=== PATIENT | male | born 1955 | race Caucasian/White ===

== ENCOUNTER 2016-12-29 10:17 | Inpatient (IN) | payer MEDICARE, OTHER ==
[~2016-12-29] VITALS: Ht 182.9 cm; Wt 159.0 kg
[2016-12-29 08:41] LABS: BASO % 0.4 % (0.2-1.2); EOS # 0.4 10_X3_uL (0.0-0.5); EOS % 4.4 % (0.8-7.0); GRAN # 6.2 10_X3_uL (1.8-5.4); GRAN % 65.4 % (34.0-67.9); HEMATOCRIT 32.2 % (40-51); HEMOGLOBIN 9.9 g/dL (13.7-17.5); LYMPH # 1.9 10_X3_uL (1.3-3.6); LYMPH % 20.3 % (21.8-53.1); MEAN CORPUSCULAR HEMOGLOBIN 28.3 pg (27.0-33.0); MEAN CORPUSCULAR HGB CONC 30.7 g/dL (32.0-36.0); MONO # 0.9 10_X3_uL (0.3-0.8); MONO % 9.5 % (5.3-12.2); PLATELET COUNT 253 x10_3/uL (163-337); RED CELL DISTRIBUTION WIDTH 14.7 % (11.6-14.4); WHITE BLOOD COUNT 9.5 x10_3/uL (4.2-9.1)
[2016-12-29 08:55] LABS: MICROALBUMIN 37.3 mg/L (1.3-20.0)
[2016-12-29 08:58] LABS: AHDL CHOLESTEROL 35 mg/dL (>40); ALBUMIN 3.8 gm/dL (3.4-5.0); ALKALINE PHOSPHATASE 113 U/L (50-136); ALT/SGPT 24 U/L (7.53-40.17); AST/SGOT 18 U/L (6.66-35.34); BLOOD UREA NITROGEN 23 mg/dL (7-18); CALCIUM 9.5 mg/dL (8.7-10.7); CARBON DIOXIDE 30 mmol/L (21-32); CHOLESTEROL 107 mg/dL (0-200); CREATININE 0.9 mg/dL (0.6-1.3); GLUCOSE,RANDOM 65 mg/dL (70-99); LDL CHOLESTEROL 55 mg/dL (0-99); MAGNESIUM 2.2 mg/dL (1.8-2.4); POTASSIUM 3.6 mmol/L (3.5-5.1); SODIUM 142 mmol/L (136-145); TOTAL PROTEIN 7.7 gm/dL (6.4-8.2); TRIGLYCERIDES 82 mg/dL (30-200)
[2016-12-29 09:55] LABS: FOLATE > 20.0 ng/mL (3.17-24.25)
[2016-12-29 14:35] LABS: INR 1.1 (0.9-1.1); PARTIAL THROMBOPLASTIN TIME 24.9 SECONDS (21.3-29.3); PROTHROMBIN TIME (PATIENT) 11.6 SECONDS (9.9-11.1)
[2016-12-29 20:07] LABS: CKMB 2.8 ng/ml (0.0-5.0)
[2016-12-29 20:09] LABS: TROP-I < 0.30 NG/ML (0.00-0.30)
[2016-12-30 04:32] LABS: CKMB 2.2 ng/ml (0.0-5.0)
[2016-12-30 04:36] LABS: TROP-I < 0.30 NG/ML (0.00-0.30)
[2016-12-30 07:34] LABS: AHDL CHOLESTEROL 27 mg/dL (>40); BLOOD UREA NITROGEN 24 mg/dL (7-18); CALCIUM 8.7 mg/dL (8.7-10.7); CARBON DIOXIDE 32 mmol/L (21-32); CHOLESTEROL 103 mg/dL (0-200); GLUCOSE,RANDOM 183 mg/dL (70-99); LDL CHOLESTEROL 57 mg/dL (0-99); MAGNESIUM 1.9 mg/dL (1.8-2.4); POTASSIUM 4.1 mmol/L (3.5-5.1); SODIUM 140 mmol/L (136-145); TRIGLYCERIDES 104 mg/dL (30-200)
[2016-12-31 06:23] LABS: BASO # 0.1 10_X3_uL (0.0-0.1); BASO % 0.7 % (0.2-1.2); EOS # 0.4 10_X3_uL (0.0-0.5); EOS % 5.3 % (0.8-7.0); GRAN # 4.5 10_X3_uL (1.8-5.4); GRAN % 58.9 % (34.0-67.9); HEMATOCRIT 29.3 % (40-51); HEMOGLOBIN 9.1 g/dL (13.7-17.5); LYMPH # 1.9 10_X3_uL (1.3-3.6); LYMPH % 25.1 % (21.8-53.1); MEAN CORPUSCULAR HEMOGLOBIN 28.4 pg (27.0-33.0); MEAN CORPUSCULAR HGB CONC 31.1 g/dL (32.0-36.0); MEAN CORPUSCULAR VOLUME 91.6 fL (79-92); MEAN PLATELET VOLUME 10.3 fl (7.5-11.5); MONO # 0.8 10_X3_uL (0.3-0.8); PLATELET COUNT 237 x10_3/uL (163-337); RED CELL DISTRIBUTION WIDTH 14.5 % (11.6-14.4); WHITE BLOOD COUNT 7.6 x10_3/uL (4.2-9.1)
[2016-12-31 06:50] LABS: ALBUMIN 3.3 gm/dL (3.4-5.0); ALKALINE PHOSPHATASE 92 U/L (50-136); ALT/SGPT 18 U/L (7.53-40.17); AST/SGOT 13 U/L (6.66-35.34); BILIRUBIN,TOTAL 0.42 mg/dL (0.0-1.0); CALCIUM 8.8 mg/dL (8.7-10.7); CARBON DIOXIDE 34 mmol/L (21-32); CREATININE 1.3 mg/dL (0.6-1.3); GLUCOSE,RANDOM 185 mg/dL (70-99); MAGNESIUM 1.9 mg/dL (1.8-2.4); POTASSIUM 4.4 mmol/L (3.5-5.1); SODIUM 139 mmol/L (136-145); TOTAL PROTEIN 6.6 gm/dL (6.4-8.2)
[2016-12-31 06:54] LABS: BLOOD UREA NITROGEN 37 mg/dL (7-18)
== END 2016-12-31 11:01 | disposition home or self-care (01) | DRG 292 ==
LOC: EDSTATUS 10:17 → ER 10:18 → MS 12:43
PROVIDERS: Family Medicine; ADMIT Family Medicine
DX: I11.0 Hypertensive heart disease with heart failure (principal); L03.115 Cellulitis of right lower limb; L03.116 Cellulitis of left lower limb; I50.21 Acute systolic (congestive) heart failure; E87.70 Fluid overload, unspecified; B96.4 Proteus (mirabilis) (morganii) as the cause of diseases classified elsewhere; I87.2 Venous insufficiency (chronic) (peripheral); E11.9 Type 2 diabetes mellitus without complications; Z80.9 Family history of malignant neoplasm, unspecified; Z83.3 Family history of diabetes mellitus; R05 Cough; Z88.0 Allergy status to penicillin; Z88.2 Allergy status to sulfonamides; Z88.6 Allergy status to analgesic agent; Z79.899 Other long term (current) drug therapy; Z79.82 Long term (current) use of aspirin; Z79.4 Long term (current) use of insulin
CPT/HCPCS: 36415; 71010; 80048; 80053; 80061; 80162; 82043; 82248; 82306; 82550; 82553; 82570; 82607; 82746; 82962; 83036; 83735; 83880; 84443; 85025; 85610; 85730; 87070; 87186; 93005; 93041; 93306; 94640; 94664; 96365; 96375; 99070; 99284; 99285-25

== ENCOUNTER 2016-12-29 10:18 | Emergency (ER) | payer MEDICARE, OTHER | END 2016-12-29 12:43 | disposition other institution (70) | LOC: ER 10:18 | DX: I50.9 Heart failure, unspecified (principal); R60.0 Localized edema; E11.9 Type 2 diabetes mellitus without complications; I10 Essential (primary) hypertension; Z88.0 Allergy status to penicillin; Z88.2 Allergy status to sulfonamides; Z88.6 Allergy status to analgesic agent | CPT/HCPCS: 99284; 99285-25 ==

== ENCOUNTER 2017-01-05 17:52 | Emergency (ER) | payer MEDICARE, OTHER | END 2017-01-05 20:01 | disposition other institution (70) | LOC: ER 17:52 | DX: L03.116 Cellulitis of left lower limb (principal); L03.115 Cellulitis of right lower limb; E11.9 Type 2 diabetes mellitus without complications; I10 Essential (primary) hypertension; Z88.0 Allergy status to penicillin; Z88.2 Allergy status to sulfonamides | CPT/HCPCS: 99284 ==

== ENCOUNTER 2017-01-05 17:52 | Inpatient (IN) | payer MEDICARE, OTHER ==
[~2017-01-05] VITALS: Ht 182.9 cm; Wt 156.0 kg
[2017-01-05 19:04] LABS: BASO # 0.1 10_X3_uL (0.0-0.1); BASO % 0.7 % (0.2-1.2); EOS # 0.4 10_X3_uL (0.0-0.5); GRAN # 4.7 10_X3_uL (1.8-5.4); GRAN % 61.2 % (34.0-67.9); HEMATOCRIT 30.9 % (40-51); HEMOGLOBIN 9.6 g/dL (13.7-17.5); LYMPH # 1.6 10_X3_uL (1.3-3.6); LYMPH % 20.7 % (21.8-53.1); MEAN CORPUSCULAR HEMOGLOBIN 28.6 pg (27.0-33.0); MEAN CORPUSCULAR HGB CONC 31.1 g/dL (32.0-36.0); MONO # 0.9 10_X3_uL (0.3-0.8); MONO % 12.4 % (5.3-12.2); PLATELET COUNT 239 x10_3/uL (163-337); RED BLOOD COUNT 3.36 x10_6/uL (4.6-6.1); RED CELL DISTRIBUTION WIDTH 14.3 % (11.6-14.4); WHITE BLOOD COUNT 7.6 x10_3/uL (4.2-9.1)
[2017-01-05 19:15] LABS: BLOOD UREA NITROGEN 35 mg/dL (7-18); CARBON DIOXIDE 32 mmol/L (21-32); GLUCOSE,RANDOM 155 mg/dL (70-99); POTASSIUM 4.5 mmol/L (3.5-5.1); SODIUM 142 mmol/L (136-145)
[2017-01-06 07:03] LABS: AHDL CHOLESTEROL 27 mg/dL (>40); ALBUMIN 3.5 gm/dL (3.4-5.0); ALKALINE PHOSPHATASE 92 U/L (50-136); ALT/SGPT 23 U/L (7.53-40.17); AST/SGOT 18 U/L (6.66-35.34); BILIRUBIN,TOTAL 0.35 mg/dL (0.0-1.0); BLOOD UREA NITROGEN 29 mg/dL (7-18); CALCIUM 8.8 mg/dL (8.7-10.7); CARBON DIOXIDE 32 mmol/L (21-32); CHOLESTEROL 96 mg/dL (0-200); GLUCOSE,RANDOM 127 mg/dL (70-99); LDL CHOLESTEROL 45 mg/dL (0-99); POTASSIUM 4.2 mmol/L (3.5-5.1); SODIUM 143 mmol/L (136-145); TOTAL PROTEIN 6.7 gm/dL (6.4-8.2); TRIGLYCERIDES 129 mg/dL (30-200)
[2017-01-08 06:51] LABS: HEMATOCRIT 30.8 % (40-51); HEMOGLOBIN 9.4 g/dL (13.7-17.5); MEAN CORPUSCULAR HEMOGLOBIN 27.6 pg (27.0-33.0); MEAN CORPUSCULAR HGB CONC 30.5 g/dL (32.0-36.0); MEAN CORPUSCULAR VOLUME 90.6 fL (79-92); MEAN PLATELET VOLUME 9.9 fl (7.5-11.5); RED BLOOD COUNT 3.4 x10_6/uL (4.6-6.1); RED CELL DISTRIBUTION WIDTH 14.1 % (11.6-14.4); WHITE BLOOD COUNT 7.8 x10_3/uL (4.2-9.1)
[2017-01-08 06:57] LABS: BLOOD UREA NITROGEN 23 mg/dL (7-18); CARBON DIOXIDE 33 mmol/L (21-32); CREATININE 0.8 mg/dL (0.6-1.3); GLUCOSE,RANDOM 100 mg/dL (70-99); POTASSIUM 4.2 mmol/L (3.5-5.1); SODIUM 141 mmol/L (136-145)
[2017-01-09 07:19] LABS: MEAN CORPUSCULAR VOLUME 90.1 fL (79-92); MEAN PLATELET VOLUME 10.7 fl (7.5-11.5); RED BLOOD COUNT 3.22 x10_6/uL (4.6-6.1); WHITE BLOOD COUNT 6.9 x10_3/uL (4.2-9.1)
[2017-01-09 07:35] LABS: BLOOD UREA NITROGEN 25 mg/dL (7-18); CARBON DIOXIDE 33 mmol/L (21-32); CREATININE 0.8 mg/dL (0.6-1.3); GLUCOSE,RANDOM 210 mg/dL (70-99); POTASSIUM 4.5 mmol/L (3.5-5.1); SODIUM 139 mmol/L (136-145)
[2017-01-10 06:51] LABS: HEMOGLOBIN 9.1 g/dL (13.7-17.5); MEAN CORPUSCULAR HEMOGLOBIN 27.7 pg (27.0-33.0); MEAN CORPUSCULAR HGB CONC 30.3 g/dL (32.0-36.0); MEAN CORPUSCULAR VOLUME 91.2 fL (79-92); MEAN PLATELET VOLUME 10.1 fl (7.5-11.5); RED BLOOD COUNT 3.29 x10_6/uL (4.6-6.1); RED CELL DISTRIBUTION WIDTH 13.9 % (11.6-14.4); WHITE BLOOD COUNT 8.4 x10_3/uL (4.2-9.1)
[2017-01-10 07:00] LABS: BLOOD UREA NITROGEN 25 mg/dL (7-18); CALCIUM 8.9 mg/dL (8.7-10.7); CARBON DIOXIDE 35 mmol/L (21-32); CREATININE 0.9 mg/dL (0.6-1.3); GLUCOSE,RANDOM 182 mg/dL (70-99); POTASSIUM 4.8 mmol/L (3.5-5.1); SODIUM 140 mmol/L (136-145)
== END 2017-01-10 13:00 | disposition home health service (06) | DRG 603 ==
LOC: ER 17:52 → MS 20:01 → UNDODEPER 01-06 20:29 → MS 01-10 13:00
PROVIDERS: Emergency Medicine; ADMIT Family Medicine
PROC: 05HN33Z Insertion of Infusion Device into Left Internal Jugular Vein, Percutaneous Approach (ICD-10-PCS; principal; 2017-01-09)
DX: L03.115 Cellulitis of right lower limb (principal); Z68.42 Body mass index [BMI] 45.0-49.9, adult; L03.116 Cellulitis of left lower limb; B96.4 Proteus (mirabilis) (morganii) as the cause of diseases classified elsewhere; Z16.12 Extended spectrum beta lactamase (ESBL) resistance; E11.9 Type 2 diabetes mellitus without complications; I10 Essential (primary) hypertension; Z88.0 Allergy status to penicillin; Z88.1 Allergy status to other antibiotic agents; Z79.899 Other long term (current) drug therapy; Z79.82 Long term (current) use of aspirin; Z79.4 Long term (current) use of insulin; Z74.01 Bed confinement status; E66.01 Morbid (severe) obesity due to excess calories; K59.00 Constipation, unspecified
CPT/HCPCS: 36415; 36582; 71010; 80048; 80053; 80061; 82962; 85025; 99070; 99284; C1751; J1335